=== PATIENT | male | born 2000 | race Asian ===

== ENCOUNTER 2022-08-27 14:09 | Emergency (ER) | payer OTHER ==
[~2022-08-27] VITALS: Ht 177.8 cm; Wt 81.8 kg
[2022-08-27 15:26] VITALS: BP 133/70
[2022-08-27] MEDS ORDERED: HYDR-4723 PO (15:55)
[2022-08-27] MEDS ORDERED: PENI500T2 PO (15:55)
[2022-08-27] MEDS ORDERED: IBUP-1554 PO (15:55)
[2022-08-27] MEDS ORDERED: IBUPROFEN 600 MG TABLET PO ONE (16:00)
[2022-08-27] MEDS ORDERED: HYDROCODONE/ACETAMINOPHEN 5-325 MG TABLET PO ONE (16:00)
== END 2022-08-27 16:07 | disposition home or self-care (01) ==
LOC: EMS 14:13
DX: K04.7 Periapical abscess without sinus (principal)
CPT/HCPCS: 99283